=== PATIENT | female | born 1950 ===

== ENCOUNTER 2016-09-04 19:48 | Emergency (ER) | payer SELFPAY ==
[~2016-09-04] VITALS: Ht 157.5 cm; Wt 88.0 kg
[2016-09-04 20:12] VITALS: BP 156/83
[2016-09-04] MEDS ORDERED: PRAV20TA4 PO (20:31)
== END 2016-09-04 21:24 | disposition left against medical advice (07) ==
LOC: EDBD 19:50 → EMS 19:50
DX: Z00.8 Encounter for other general examination (principal); Z53.21 Procedure and treatment not carried out due to patient leaving prior to being seen by health care provider